=== PATIENT | female | born 1955 | race African-American/Black ===

== ENCOUNTER 2020-08-26 15:10 | Inpatient (IN) | payer OTHER ==
[2020-08-26 16:35] VITALS: BMI 24.2
[2020-08-26] MEDS ORDERED: IBUPROFEN 400 MG TABLET (FP) PO PRN (17:35)
[2020-08-26] MEDS ORDERED: MAGNESIUM CITRATE 300 ML BOTTLE PO PRN (17:35)
[2020-08-26] MEDS ORDERED: NICOTINE POLACRILEX 2 MG GUM BUC PRN (17:35)
[2020-08-26] MEDS ORDERED: MENTHOL/PHENOL 1 EACH UD MM PRN (17:35)
[2020-08-26] MEDS ORDERED: ONDANSETRON *ODT* 4 MG TABLET SL PRN (17:35)
[2020-08-26] MEDS ORDERED: ACETAMINOPHEN 325 MG TABLET (FP) PO PRN ×2 (17:35)
[2020-08-26] MEDS ORDERED: BISMUTH SUBSALICYLATE 524 MG/30 ML PO PRN (17:35)
[2020-08-26] MEDS ORDERED: diazePAM 5 MG TABLET PO ONE (17:35)
[2020-08-26] MEDS ORDERED: MAGNESIUM HYDROX 2400MG/30ML ORAL SUSPENSION 30 ML CUP PO PRN (17:35)
[2020-08-26] MEDS ORDERED: NICOTINE 7 MG/24 HOURS TOPICAL PATCH TD PRN (17:35)
[2020-08-26] MEDS ORDERED: diazePAM 5 MG TABLET PO PRN (17:35)
[2020-08-26] MEDS ORDERED: METHOCARBAMOL 500 MG TABLET PO PRN (17:35)
[2020-08-26] MEDS ORDERED: MAG HYDROX/AL HYDROX/SIMETH 30 ML UNIT-DOSE CUP PO PRN (17:35)
[2020-08-26] MEDS ORDERED: amLODIPine BESYLATE 10 MG TABLET (FP) PO SCH (17:45)
[2020-08-26] MEDS: amLODIPine BESYLATE 10 MG TABLET (FP) PO SCH ×2 (19:03→22:31)
[2020-08-26] MEDS: hydrOXYzine PAMOATE 25 MG CAPSULE (FP) PO SCH ×2 (19:03→22:31)
[2020-08-26] MEDS: THIAMINE HCL 100 MG TABLET (FP) PO SCH (22:31)
[2020-08-26] MEDS: MELATONIN 5 MG TABLETS PO SCH (22:31)
[2020-08-26] MEDS: CARVEDILOL 12.5 MG TABLET (FP) PO SCH (22:31)
[2020-08-26] MEDS: diazePAM 5 MG TABLET PO SCH (22:31)
[2020-08-27] MEDS: diazePAM 5 MG TABLET PO SCH ×4 (05:44→22:22)
[2020-08-27] MEDS: hydrOXYzine PAMOATE 25 MG CAPSULE (FP) PO SCH ×5 (05:44→22:22)
[2020-08-27] MEDS ORDERED: risperiDONE 1 MG TABLET PO SCH (10:00)
[2020-08-27] MEDS ORDERED: BENZTROPINE MESYLATE 1 MG TABLET PO SCH (10:00)
[2020-08-27] MEDS: LOSARTAN 50MG/HCTZ 12.5MG 1 TAB PO SCH (10:06)
[2020-08-27] MEDS: CITALOPRAM HYDROBROMIDE 20 MG TABLET PO SCH (10:06)
[2020-08-27] MEDS: CARVEDILOL 12.5 MG TABLET (FP) PO SCH ×2 (10:06→22:22)
[2020-08-27] MEDS: PRENATAL VITAMINS W/ FOLIC ACID TABLET (FP) PO SCH (10:07)
[2020-08-27 11:09] LABS: HEMATOCRIT 38.6 % (32.4-45.2); HEMOGLOBIN 13.3 GM/dL (10.7-15.3); MCH 30.4 pg (25.7-33.7); MCHC 34.3 g/dl (32.0-36.0); MEAN CELL VOLUME 88.4 fl (80-96); MEAN PLT VOLUME 9.8 fl (7.5-11.1); PLATELET COUNT 91 K/MM3 (134-434); RBC 4.37 M/mm3 (3.60-5.2); RDW 16.8 % (11.6-15.6); WHITE BLOOD COUNT 3.6 K/mm3 (4.0-10.0)
[2020-08-27 11:22] LABS: ALBUMIN 3.4 g/dl (3.4-5.0); BLOOD UREA NITROGEN 7.1 mg/dL (7-18)
[2020-08-27 11:24] LABS: BILIRUBIN,TOTAL 1.7 mg/dL (0.2-1); CALCIUM 9.3 mg/dL (8.5-10.1); TOT PROT 8.8 g/dl (6.4-8.2)
[2020-08-27 11:25] LABS: CREATININE 0.4 mg/dL (0.55-1.3); SICKLE CELL SCREEN NEGATIVE (NEGATIVE)
[2020-08-27] MEDS ORDERED: BENZTROPINE MESYLATE 1 MG TABLET PO ONE (11:45)
[2020-08-27] MEDS: risperiDONE 1 MG TABLET PO SCH (11:49)
[2020-08-27] MEDS: ABACAVIR/DOLUTEGRAVIR/LAMIVUDI (TRIUMEQ) TABLET -NF PO SCH (11:50)
[2020-08-27] MEDS ORDERED: BENZTROPINE MESYLATE 0.5 MG TABLET (FP) PO ONE (12:00)
[2020-08-27] MEDS: amLODIPine BESYLATE 10 MG TABLET (FP) PO SCH (14:23)
[2020-08-27] MEDS: MELATONIN 5 MG TABLETS PO SCH (22:22)
[2020-08-27] MEDS: THIAMINE HCL 100 MG TABLET (FP) PO SCH (22:22)
[2020-08-28] MEDS: hydrOXYzine PAMOATE 25 MG CAPSULE (FP) PO SCH ×5 (05:44→22:37)
[2020-08-28] MEDS: diazePAM 5 MG TABLET PO SCH ×3 (05:44→22:37)
[2020-08-28] MEDS: amLODIPine BESYLATE 10 MG TABLET (FP) PO SCH (10:06)
[2020-08-28] MEDS: risperiDONE 1 MG TABLET PO SCH (10:06)
[2020-08-28] MEDS: PRENATAL VITAMINS W/ FOLIC ACID TABLET (FP) PO SCH (10:06)
[2020-08-28] MEDS: CITALOPRAM HYDROBROMIDE 20 MG TABLET PO SCH (10:06)
[2020-08-28] MEDS: BENZTROPINE MESYLATE 1 MG TABLET PO SCH (10:06)
[2020-08-28] MEDS: LOSARTAN 50MG/HCTZ 12.5MG 1 TAB PO SCH (10:07)
[2020-08-28] MEDS: ABACAVIR/DOLUTEGRAVIR/LAMIVUDI (TRIUMEQ) TABLET -NF PO SCH (10:08)
[2020-08-28] MEDS: CARVEDILOL 12.5 MG TABLET (FP) PO SCH (10:08)
[2020-08-28] MEDS: THIAMINE HCL 100 MG TABLET (FP) PO SCH (22:37)
[2020-08-28] MEDS: MELATONIN 5 MG TABLETS PO SCH (22:38)
[2020-08-29] MEDS: CARVEDILOL 25 MG TABLET (FP) PO SCH ×2 (00:16→10:58)
[2020-08-29] MEDS: hydrOXYzine PAMOATE 25 MG CAPSULE (FP) PO SCH ×2 (05:04→10:20)
[2020-08-29] MEDS ORDERED: diazePAM 5 MG TABLET PO SCH (06:00)
[2020-08-29] MEDS ORDERED: CARVEDILOL 12.5 MG TABLET (FP) PO SCH (10:00)
[2020-08-29] MEDS: risperiDONE 1 MG TABLET PO SCH (10:20)
[2020-08-29] MEDS: amLODIPine BESYLATE 10 MG TABLET (FP) PO SCH (10:20)
[2020-08-29] MEDS: CITALOPRAM HYDROBROMIDE 20 MG TABLET PO SCH (10:20)
[2020-08-29] MEDS: BENZTROPINE MESYLATE 1 MG TABLET PO SCH (10:20)
[2020-08-29] MEDS: PRENATAL VITAMINS W/ FOLIC ACID TABLET (FP) PO SCH (10:21)
[2020-08-29] MEDS: LOSARTAN 50MG/HCTZ 12.5MG 1 TAB PO SCH (10:21)
[2020-08-29] MEDS: ABACAVIR/DOLUTEGRAVIR/LAMIVUDI (TRIUMEQ) TABLET -NF PO SCH (10:21)
[2020-08-29 13:19] VITALS: BP 111/71; PULSE 99; TEMP 97.3
[2020-08-30] MEDS ORDERED: diazePAM 5 MG TABLET PO ONE (06:00)
== END 2020-08-29 13:00 | disposition left against medical advice (07) | DRG 894 ==
LOC: YASAS 15:10 → Y6N 17:49
PROVIDERS: ADMIT Allergy & Immunology; ATTEND Allergy & Immunology
PROC: HZ2ZZZZ Detoxification Services for Substance Abuse Treatment (ICD-10-PCS; principal; 2020-08-26)
DX: F10.230 Alcohol dependence with withdrawal, uncomplicated (principal); F17.210 Nicotine dependence, cigarettes, uncomplicated; F10.282 Alcohol dependence with alcohol-induced sleep disorder; F10.24 Alcohol dependence with alcohol-induced mood disorder; F25.9 Schizoaffective disorder, unspecified; Z21 Asymptomatic human immunodeficiency virus [HIV] infection status; I10 Essential (primary) hypertension; E55.9 Vitamin D deficiency, unspecified; B18.2 Chronic viral hepatitis C; R73.9 Hyperglycemia, unspecified; R74.01 Elevation of levels of liver transaminase levels; Z62.810 Personal history of physical and sexual abuse in childhood; Z99.89 Dependence on other enabling machines and devices
CPT/HCPCS: 36415; 80053; 82962; 84450; 85027; 85660; 86780; 86803; C9803; J2794; U0003; U0005